=== PATIENT | male | born 1970 | race Caucasian/White ===

== ENCOUNTER 2021-08-23 19:39 | Emergency (ER) | payer OTHER, SELFPAY ==
--- NOTE | 2021-08-23 19:45 | ED.URI ---
HPI - URI/Sore Throat General Chief Complaint: Upper Respiratory Infection Stated Complaint: fever,cough,sorethroat Time Seen by Provider: 08/23/21 19:54 Source: patient Mode of arrival: ambulatory Limitations: no limitations History of Present Illness HPI Narrative: Primitivo is a 50-year-old male patient who ambulated into the [facility]. Patient states he has 2-day history of fever, sweats, and cough. Patient states he had 101 fever at home. Patient has a productive cough with light green sputum. Patient state rates his sore throat at an 8. Patient has been taking Tylenol. Patient also complains of decreased appetite. Patient's only past medical history is hypertension and hypercholesterolemia. Patient states his boss learned he was Covid positive last night. MD elicited complaint: cough Related Data Home Medications Medication Instructions Recorded Confirmed metoprolol succinate 25 mg PO DAILY 08/23/21 08/23/21 simvastatin 20 mg DAILY 08/23/21 08/23/21 Allergies Allergy/AdvReac Type Severity Reaction Status Date / Time iodine Allergy Unknown Verified 08/23/21 19:53 shellfish derived Allergy Unknown Verified 08/23/21 19:53 SHELLFISH Allergy Severe Anaphylactic Uncoded 08/23/21 19:53 Shock Review of Systems Review of Systems: CONSTITUTIONAL: + body aches,+ fever, chills, +sweats. EYES: Denies visual changes, redness, or discharge. ENT: Denies rhinorrhea,+ congestion,+ sore throat, denies otalgia. CARDIOVASCULAR: Denies chest pain, palpitations, or edema. RESPIRATORY: + cough denies dyspnea. GASTROINTESTINAL: Denies abdominal pain, nausea, vomiting, or diarrhea. GENITOURINARY: Denies dysuria or hematuria. SKIN: Denies rash, itching, or wounds. MUSCULOSKELETAL: Denies back pain, joint pain, or myalgia. NEUROLOGIC: Denies headache, numbness, tingling, or weakness. PSYCH: Denies depression or anxiety. All systems reviewed & are unremarkable except as noted in HPI and below PMFSH Family History Family History Mother Family history of migraine headaches Hypertension Patient's mother is in good health Cerebrovascular accident Family history of elevated blood lipids Father Patient's father is in good health Family history of hearing loss Sibling Patient's sister is in good health Grandparent Family history of Parkinson's disease Diabetes mellitus Hypertension Family history of elevated blood lipids Other Family history of heart disease in male family member before age 55 Social History Social History Alcohol intake: current Comments At time of signature, I have reviewed and agree with nursing past medical, surgical, social and family history unless otherwise noted. Please see nursing chart for further information. There is no relevant family history pertinent to the presenting complaint Exam Narrative: GENERAL: Well-appearing, well-nourished, and in no acute distress. HEAD: Normocephalic, atraumatic. EYES: EOMI. No redness or drainage. Conjunctivae normal. ENT: Mucous membranes pink and moist. Nasal membranes erythemic with clear rhinorrhea. Bilateral tympanic membranes are dull with minimal fluid. Posterior pharynx is mildly erythemic without edema and moderate clear postnasal drainage is noted Uvula midline. NECK: Normal AROM. Supple. No lymphadenopathy. CHEST: No respiratory distress. Clear to auscultation. MUSCULOSKELETAL: No bony tenderness. EXTREMITIES: Normal range of motion. No edema. SKIN: Warm, dry, no rash. Capillary refill normal. Normal skin turgor. NEURO: No focal deficits. Alert and oriented x3. Gait steady. PSYCH: Normal affect. No signs of depression or anxiety. Course Course Emergency Course: Primitivo complains of fever, sweats, cough, and sore throat. Patient has been taken Tylenol with minimal relief. Patient has a decreased appetite. Patient also was
[2021-08-23 19:51] VITALS: BP 168/82; PULSE 78; RESP 18; TEMP 36.6; O2SAT 97
== END 2021-08-23 20:03 | disposition home or self-care (01) ==
PROVIDERS: Emergency Provider Nurse Practitioner Family; PCP Internal Medicine
DX: U07.1 COVID-19 (principal); E78.00 Pure hypercholesterolemia, unspecified; I10 Essential (primary) hypertension
CPT/HCPCS: 87081; 87426; 87804; 87880; 99213; C9803; G0463